=== PATIENT | female | born 1955 | race Caucasian/White ===

== ENCOUNTER → 2021-06-02 | Day surgery (SDC) | payer OTHER | END | disposition home or self-care (01) | LOC: JMAMMO-SUR 09:51 | PROVIDERS: ATTEND Internal Medicine | PROC: 0H9U3ZX Drainage of Left Breast, Percutaneous Approach, Diagnostic (ICD-10-PCS; principal; 2021-06-02) | DX: C50.912 Malignant neoplasm of unspecified site of left female breast (principal) | CPT/HCPCS: 19083; 77065-TC; 87899; 88305-TC; A4648 ==

== ENCOUNTER 2021-06-22 04:19 | Day surgery (SDC) | payer OTHER ==
[2021-06-18 16:14] VITALS: BMI 26.6
[2021-06-22] MEDS ORDERED: ISOSULFAN BLUE 50 MG/5 ML VIAL SQ ONE (10:55)
[2021-06-22 12:03] LABS: URINE APPEARANCE CLEAR; URINE BILIRUBIN NEGATIVE (NEGATIVE); URINE COLOR YELLOW; URINE GLUCOSE (UA) NEGATIVE (NEGATIVE); URINE KETONE NEGATIVE (NEGATIVE); URINE LEUK ESTERASE NEGATIVE (NEGATIVE); URINE NITRITE NEGATIVE (NEGATIVE); URINE PROTEIN NEGATIVE (NEGATIVE); URINE UROBILINOGEN 0.2 mg/dL (0.2-1.0)
[2021-06-22] MEDS ORDERED: PROPOFOL 20 ML ONE (14:37)
[2021-06-22] MEDS ORDERED: MIDAZOLAM HCL 2 MG/2 ML SINGLE DOSE VIAL ONE (14:37)
[2021-06-22] MEDS ORDERED: DEXAMETHASONE SOD PHOSPHATE 4 MG/1 ML VIAL ONE (14:37)
[2021-06-22] MEDS ORDERED: LIDOCAINE HCL 1%, 10 MG/ML (20ML VIAL) ONE (14:45)
[2021-06-22] MEDS ORDERED: ceFAZolin SODIUM 1 GM VIAL IVPB ONE (15:02)
[2021-06-22] MEDS ORDERED: ceFAZolin SODIUM 1 GM VIAL ONE (15:03)
[2021-06-22] MEDS ORDERED: LIDOCAINE HCL 1%, 10 MG/ML (20ML VIAL) NR ONE ×2 (15:21)
[2021-06-22] MEDS ORDERED: oxyCODONE HCL 5 MG TABLET PO PRN ×2 (16:42)
[2021-06-22] MEDS ORDERED: ONDANSETRON 4 MG/2 ML VIAL IVPUSH PRN (16:42)
[2021-06-22] MEDS ORDERED: PROMETHAZINE HCL 25 MG/1 ML VIAL IVPUSH PRN (16:42)
[2021-06-22] MEDS ORDERED: LACTATED RINGERS SOLUTION 1,000 ML IV SCH (16:45)
[2021-06-22] MEDS ORDERED: ONDANSETRON 4 MG/2 ML VIAL ONE (17:56)
[2021-06-22 18:15] VITALS: TEMP 97.9
[2021-06-22] MEDS ORDERED: oxyCODONE HCL 5 MG TABLET ONE ×2 (18:50→19:37)
[2021-06-22] MEDS ORDERED: PROMETHAZINE HCL 25 MG/1 ML VIAL IVPUSH ONE (19:22)
[2021-06-22] MEDS ORDERED: PROMETHAZINE HCL 25 MG/1 ML VIAL ONE (19:24)
[2021-06-22 19:35] VITALS: BP 125/77; PULSE 92
== END 2021-06-22 20:17 | disposition home or self-care (01) ==
LOC: JASU-SURG 04:19
PROVIDERS: ATTEND Surgery
PROC: 0HBU0ZX Excision of Left Breast, Open Approach, Diagnostic (ICD-10-PCS; principal; 2021-06-22 13:00)
DX: C50.912 Malignant neoplasm of unspecified site of left female breast (principal)
CPT/HCPCS: 78195-TC; 81003; 88307-TC; 88342-TC; 94760; A9541

== ENCOUNTER 2021-07-19 04:29 | Day surgery (SDC) | payer OTHER ==
[2021-07-15 11:40] VITALS: BMI 26.6
[~2021-07-19 04:29] MED LIST: LIDOCAINE HCL 1%, 10 MG/ML (20ML VIAL) NR ONE
[2021-07-19] MEDS ORDERED: oxyCODONE HCL 5 MG TABLET PO PRN (09:25)
[2021-07-19] MEDS ORDERED: PROMETHAZINE HCL 25 MG/1 ML VIAL IVPB PRN (09:25)
[2021-07-19] MEDS ORDERED: ONDANSETRON 4 MG/2 ML VIAL IVPUSH PRN (09:25)
[2021-07-19] MEDS ORDERED: LACTATED RINGERS SOLUTION 1,000 ML IV SCH (09:30)
[2021-07-19] MEDS ORDERED: LIDOCAINE HCL 1%, 10 MG/ML (20ML VIAL) ONE (09:34)
[2021-07-19] MEDS ORDERED: MIDAZOLAM HCL 2 MG/2 ML SINGLE DOSE VIAL ONE (10:40)
[2021-07-19] MEDS ORDERED: FENTANYL CITRATE/PF 50 MCG/ML VIAL ONE ×4 (10:40→12:18)
[2021-07-19] MEDS ORDERED: PROPOFOL 20 ML ONE (10:40)
[2021-07-19] MEDS ORDERED: LIDOCAINE HCL/PF 2% SDV 5ML VIAL ONE (10:40)
[2021-07-19] MEDS ORDERED: ceFAZolin SODIUM 1 GM VIAL ONE (11:18)
[2021-07-19] MEDS ORDERED: LIDOCAINE HCL 1%, 10 MG/ML (20ML VIAL) NR ONE ×2 (11:19→11:28)
[2021-07-19] MEDS ORDERED: ceFAZolin SODIUM 1 GM VIAL IVPB ONE (11:20)
[2021-07-19] MEDS ORDERED: KETOROLAC TROMETHAMINE 30 MG/1 ML VIAL ONE (11:44)
[2021-07-19] MEDS: FENTANYL CITRATE/PF 50 MCG/ML VIAL IVPUSH PRN ×2 (12:02→12:19)
[2021-07-19 13:54] VITALS: TEMP 97
[2021-07-19 14:17] VITALS: BP 131/65; PULSE 65
== END 2021-07-19 14:18 | disposition home or self-care (01) ==
LOC: JASU-SURG 04:29
PROVIDERS: ATTEND Surgery
PROC: 0HBU0ZZ Excision of Left Breast, Open Approach (ICD-10-PCS; principal; 2021-07-19 11:00)
DX: C50.912 Malignant neoplasm of unspecified site of left female breast (principal)
CPT/HCPCS: 88307-TC; 94760

== ENCOUNTER 2021-09-20 05:30 | Inpatient (IN) | payer OTHER ==
[2021-09-15 16:45] VITALS: BMI 26.7
[2021-09-20] MEDS ORDERED: METHYLENE BLUE 50 MG/10 ML AMPUL ONE (10:51)
[2021-09-20] MEDS ORDERED: LIDOCAINE HCL 2% 100 MG/5 ML DISP.SYRIN ONE (11:15)
[2021-09-20] MEDS ORDERED: KETOROLAC TROMETHAMINE 30 MG/1 ML VIAL ONE ×2 (11:15→12:51)
[2021-09-20] MEDS ORDERED: ONDANSETRON 4 MG/2 ML VIAL ONE ×2 (11:15→12:51)
[2021-09-20] MEDS ORDERED: DEXAMETHASONE SOD PHOSPHATE 4 MG/1 ML VIAL ONE ×2 (11:15→11:39)
[2021-09-20] MEDS ORDERED: MIDAZOLAM HCL 2 MG/2 ML SINGLE DOSE VIAL ONE (11:16)
[2021-09-20] MEDS ORDERED: ROCURONIUM BROMIDE 50 MG/5 ML SYRINGE ONE (11:16)
[2021-09-20] MEDS ORDERED: PROPOFOL 20 ML ONE ×2 (11:16)
[2021-09-20] MEDS ORDERED: SUCCINYLCHOLINE CHLORIDE 200 MG/10 ML SYRINGE ONE (11:16)
[2021-09-20] MEDS ORDERED: ceFAZolin SODIUM 1 GM VIAL ONE ×2 (11:39→19:29)
[2021-09-20] MEDS ORDERED: ceFAZolin SODIUM 1 GM VIAL IVPB ONE (11:40)
[2021-09-20] MEDS ORDERED: HYDROmorphone *PCA* 10MG/50ML DISP.SYRIN PCA SCH ×2 (12:30→14:13)
[2021-09-20] MEDS ORDERED: oxyCODONE HCL 5 MG TABLET PO PRN ×2 (13:44→14:13)
[2021-09-20] MEDS ORDERED: ONDANSETRON 4 MG/2 ML VIAL IVPUSH PRN ×2 (13:44→14:13)
[2021-09-20] MEDS ORDERED: PROMETHAZINE HCL 25 MG/1 ML VIAL IVPUSH PRN (13:44)
[2021-09-20] MEDS ORDERED: HYDROmorphone *PCA* 10MG/50ML DISP.SYRIN ONE (14:07)
[2021-09-20] MEDS ORDERED: HYDROmorphone HCl 2 MG/ML VIAL ONE (14:54)
[2021-09-20] MEDS ORDERED: HYDROmorphone HCl 2 MG/ML VIAL IVPUSH ONE ×2 (14:54→14:55)
[2021-09-20] MEDS ORDERED: TRIAMTERENE 50 MG CAPSULE PO SCH (17:30)
[2021-09-20] MEDS ORDERED: CEFAZOLIN 1 GM in DEXTROSE 5%-WATER - 50 ML IVPB SCH (18:00)
[2021-09-20] MEDS ORDERED: ONDANSETRON 4 MG/2 ML VIAL IVPUSH ONE (18:24)
[2021-09-20] MEDS: CEFAZOLIN 1 GM in DEXTROSE 5%-WATER - 50 ML IVPB SCH (19:33)
[2021-09-20] MEDS ORDERED: ZOLPIDEM TARTRATE 5 MG TABLET PO PRN (22:00)
[2021-09-20] MEDS ORDERED: ATORVASTATIN CA 20 MG TABLET (FP) PO SCH (22:00)
[2021-09-21] MEDS ORDERED: DEXTROSE 5%-WATER - 50 ML IVPB ONE ×2 (01:49→08:24)
[2021-09-21] MEDS ORDERED: ceFAZolin SODIUM 1 GM VIAL ONE ×2 (01:49→08:24)
[2021-09-21] MEDS: CEFAZOLIN 1 GM in DEXTROSE 5%-WATER - 50 ML IVPB SCH ×2 (02:01→09:03)
[2021-09-21] MEDS ORDERED: LEVOTHYROXINE NA 50 MCG TABLET (FP) PO SCH (07:00)
[2021-09-21] MEDS ORDERED: ONDANSETRON 4 MG/2 ML VIAL IVPUSH ONE (07:32)
[2021-09-21 09:17] VITALS: BP 126/71; PULSE 93; RESP 17; TEMP 98.3
[2021-09-21] MEDS ORDERED: LOSARTAN POTASSIUM 50 MG TABLET PO SCH (10:00)
== END 2021-09-21 12:02 | disposition home or self-care (01) | DRG 583 ==
LOC: J2C 05:30 → EDSTATUS 11:00 → J8W 09-21 00:22
PROVIDERS: ADMIT Surgery; ATTEND Plastic Surgery
PROC: 0HTU0ZZ Resection of Left Breast, Open Approach (ICD-10-PCS; principal; 2021-09-20 11:00)
PROC: 0HHU0NZ Insertion of Tissue Expander into Left Breast, Open Approach (ICD-10-PCS; 2021-09-20 11:00)
DX: C50.412 Malignant neoplasm of upper-outer quadrant of left female breast (principal); R51.9 Headache, unspecified; G89.18 Other acute postprocedural pain; R11.2 Nausea with vomiting, unspecified; E03.9 Hypothyroidism, unspecified
CPT/HCPCS: 88309-TC; 94760; Q9968

== ENCOUNTER 2022-04-25 06:10 | Day surgery (SDC) | payer OTHER ==
[2022-04-19 14:18] VITALS: BMI 26.9
[2022-04-25] MEDS ORDERED: PROPOFOL 20 ML ONE (07:40)
[2022-04-25] MEDS ORDERED: MIDAZOLAM HCL 2 MG/2 ML SINGLE DOSE VIAL ONE (07:40)
[2022-04-25] MEDS ORDERED: ceFAZolin SODIUM 1 GM VIAL ONE (07:42)
[2022-04-25] MEDS ORDERED: LIDOCAINE HCL/PF 2% SDV 5ML VIAL ONE (07:42)
[2022-04-25] MEDS ORDERED: SODIUM CHLORIDE 0.9% P/F 10 ML VIAL IJ ONE (07:42)
[2022-04-25] MEDS ORDERED: GLYCOPYRROLATE 0.2 MG/1 ML VIAL ONE (07:42)
[2022-04-25] MEDS ORDERED: ONDANSETRON 4 MG/2 ML VIAL ONE ×2 (08:09→09:36)
[2022-04-25] MEDS ORDERED: DEXAMETHASONE SOD PHOSPHATE 4 MG/1 ML VIAL ONE (08:09)
[2022-04-25] MEDS ORDERED: oxyCODONE HCL 5 MG TABLET PO PRN (09:09)
[2022-04-25] MEDS ORDERED: ONDANSETRON 4 MG/2 ML VIAL IVPUSH PRN (09:09)
[2022-04-25] MEDS ORDERED: FENTANYL CITRATE/PF 50 MCG/ML VIAL ONE ×2 (09:09→09:25)
[2022-04-25] MEDS ORDERED: PROMETHAZINE HCL 25 MG/1 ML VIAL IVPB PRN (09:09)
[2022-04-25] MEDS ORDERED: LACTATED RINGERS SOLUTION 1,000 ML IV SCH (09:15)
[2022-04-25] MEDS ORDERED: ACETAMINOPHEN 1000 MG/100 ML BAG IVPB ONE (09:20)
[2022-04-25] MEDS ORDERED: ACETAMINOPHEN INJECTION 100 ML IVPB ONE (09:20)
[2022-04-25 11:03] VITALS: RESP 18
[2022-04-25 11:38] VITALS: BP 112/61; PULSE 69; TEMP 97.9
== END 2022-04-25 11:25 | disposition home or self-care (01) ==
LOC: FASU 06:10
PROVIDERS: ATTEND Plastic Surgery
PROC: 0HPU0NZ Removal of Tissue Expander from Left Breast, Open Approach (ICD-10-PCS; principal; 2022-04-25 08:19)
DX: Z85.3 Personal history of malignant neoplasm of breast (principal)
CPT/HCPCS: 11970; 19380; L8600; 94760

== ENCOUNTER 2023-03-25 10:27 | Emergency (ER) | payer OTHER ==
[2023-03-25 10:52] VITALS: BP 149/67; PULSE 90; RESP 18; TEMP 98.4; BMI 26.7
[2023-03-25] MEDS ORDERED: LIDOCAINE 4% PATCH TP ONE ×2 (11:55→11:57)
[2023-03-25 12:19] LABS: URINE APPEARANCE CLEAR; URINE BILIRUBIN NEGATIVE (NEGATIVE); URINE COLOR YELLOW; URINE GLUCOSE (UA) NEGATIVE (NEGATIVE); URINE KETONE TRACE (NEGATIVE); URINE LEUK ESTERASE NEGATIVE (NEGATIVE); URINE NITRITE NEGATIVE (NEGATIVE); URINE PROTEIN TRACE (NEGATIVE); URINE UROBILINOGEN 0.2 mg/dL (0.2-1.0)
== END 2023-03-25 14:40 | disposition home or self-care (01) ==
LOC: JERFT 10:27
DX: M79.18 Myalgia, other site (principal)
CPT/HCPCS: 72131-TC; 81003; 93005; 93010; 99285-25

== ENCOUNTER 2023-06-29 04:22 | Day surgery (SDC) | payer OTHER ==
[2023-06-26 12:43] VITALS: BMI 26.9
[2023-06-29 09:55] VITALS: TEMP 97.1
[2023-06-29 10:20] VITALS: BP 137/67; PULSE 87; RESP 15
== END 2023-06-29 10:25 | disposition home or self-care (01) ==
LOC: JASU-ENDO 04:22
PROVIDERS: ATTEND Internal Medicine Gastroenterology
PROC: 0DJD8ZZ Inspection of Lower Intestinal Tract, Via Natural or Artificial Opening Endoscopic (ICD-10-PCS; principal; 2023-06-29 09:00)
DX: Z12.11 Encounter for screening for malignant neoplasm of colon (principal); K64.8 Other hemorrhoids

== ENCOUNTER 2023-07-11 04:33 | Day surgery (SDC) | payer OTHER ==
[2023-07-10 08:50] VITALS: BMI 26.9
[2023-07-11 09:12] VITALS: TEMP 97.5
[2023-07-11 09:39] VITALS: RESP 20
[2023-07-11 10:23] VITALS: BP 128/52; PULSE 88
== END 2023-07-11 10:15 | disposition home or self-care (01) ==
LOC: JASU-ENDO 04:33
PROVIDERS: ATTEND Internal Medicine Gastroenterology
PROC: 0DB78ZX Excision of Stomach, Pylorus, Via Natural or Artificial Opening Endoscopic, Diagnostic (ICD-10-PCS; 2023-07-11)
PROC: 0DB68ZX Excision of Stomach, Via Natural or Artificial Opening Endoscopic, Diagnostic (ICD-10-PCS; 2023-07-11)
PROC: 0DB48ZX Excision of Esophagogastric Junction, Via Natural or Artificial Opening Endoscopic, Diagnostic (ICD-10-PCS; principal; 2023-07-11 09:00)
DX: K21.00 Gastro-esophageal reflux disease with esophagitis, without bleeding (principal); K31.1 Adult hypertrophic pyloric stenosis; K29.50 Unspecified chronic gastritis without bleeding; I10 Essential (primary) hypertension
CPT/HCPCS: 88305-TC; 88341-TC; 88342-TC